=== PATIENT | male | born 1980 | race Caucasian/White ===

== ENCOUNTER 2019-07-09 14:05 | Inpatient (IN) | payer OTHER ==
[~2019-07-09] VITALS: Ht 175.2 cm; Wt 91.6 kg
--- NOTE | 2019-07-09 14:30 | NUR ---
A 38, admitted to , under the services of BRIDGET Garza DO with a diagnosis of POSITIVE COVID-19, SOB. Chief complaint is SOB, COUGH, FEVER. Patient arrived via bed from [place]. Monitor applied. Initial assessment completed. Vital signs taken and recorded. BRIDGET GARZA DO notified of admission to the unit. Orders received. See assessment for past medical history, medications and allergies. Patient and/or family oriented to unit. [facility] visitation policy reviewed. Clothing/patient valuable form completed. MATTHEW BOYD
[2019-07-09 14:40] VITALS: BP 169/91
[2019-07-09 15:26] LABS: ABG BASE EXCESS 4.4 mmol/L (-2.0-2.0); ARTERIAL BLOOD GAS PH 7.475 (7.35-7.45)
[2019-07-09 15:52] LABS: BASO % 0.1 % (0.0-1.0); HEMOGLOBIN 15.2 g/dl (14.0-18.0); LYMPH # 0.5 10*3/uL (1.3-4.4); LYMPH % 5.8 % (27.0-41.0); MEAN CELL VOLUME 92.6 fl (80.0-94.0); MEAN CORPUSCULAR HGB CONC 34.5 g/dl (33.0-37.0); MEAN PLATELET VOLUME 9.9 fl (9.6-12.3); MONO # 0.6 10*3/uL (0.1-1.0); MONO % 6.7 % (3.0-9.0); NEUT # 7.5 10*3/uL (2.3-7.9); NEUT % 86.9 % (47.0-73.0); PLATELET COUNT AUTOMATED 189 10*3/uL (130-400); RED BLOOD COUNT 4.75 10*6/uL (4.50-5.90); WHITE BLOOD COUNT 8.6 10*3/uL (4.8-10.8)
[2019-07-09 16:00] VITALS: BP 169/91
[2019-07-09 16:26] LABS: ALBUMIN 3.5 gm/dl (3.1-4.5); ALKALINE PHOSPHATASE 48 U/L (45-117); BUN 5 mg/dl (7-24); CHLORIDE 104 mmol/L (98-107); CPK 499 U/L (39-308); CREATININE 0.93 mg/dL (0.70-1.30); LDH 271 U/L (87-241); SGOT/AST 20 IU/L (3-35); SGPT/ALT 36 U/L (12-78); SODIUM 137 mmol/L (136-145); TOTAL PROTEIN 7.5 gm/dL (6.4-8.2); TROPONIN I < 0.015 ng/ml (<0.045)
[2019-07-09 18:15] LABS: ABG BASE EXCESS 1.9 mmol/L (-2.0-2.0); ARTERIAL BLOOD GAS PH 7.365 (7.35-7.45)
[2019-07-09 20:00] VITALS: BP 126/76
[2019-07-09 21:41] LABS: ABG BASE EXCESS 1.2 mmol/L (-2.0-2.0); ARTERIAL BLOOD GAS PH 7.332 (7.35-7.45)
--- NOTE | 2019-07-09 22:45 | NUR ---
Upon entrance to patients room, he was restless, resp up to 38, eyes open. Milton given. Diprivan running. Unable to watch patient, due to no camera in the room. Milton effective immediately.
[2019-07-10] VITALS (13 sets, daily range): BP systolic 104–160; BP diastolic 52–90
[2019-07-10 01:25] LABS: ABG BASE EXCESS 3.9 mmol/L (-2.0-2.0); ARTERIAL BLOOD GAS PH 7.428 (7.35-7.45)
[2019-07-10 05:04] LABS: HEP B CORE AB, IGM Negative (Negative); HEPATITIS B SURFACE AG Negative (Negative); HEPATITIS C AB <0.1 (0.0-0.9); HEPATITIS C VIRUS ANTIBODY <0.1 s/co (0.0-0.9)
[2019-07-10 05:29] LABS: ALBUMIN 3.4 gm/dl (3.1-4.5); BUN 8 mg/dl (7-24); CHLORIDE 102 mmol/L (98-107); CHOLESTEROL 101 mg/dL (<200); PHOSPHOROUS 2.7 mg/dL (2.5-4.9); POTASSIUM 3.5 mmol/L (3.5-5.1); SGOT/AST 28 IU/L (3-35); SGPT/ALT 39 U/L (12-78); SODIUM 139 mmol/L (136-145); TOTAL PROTEIN 7.4 gm/dL (6.4-8.2); TRIGLYCERIDES 141 mg/dl (<150); VLDL CHOLESTEROL 28 mg/dL (6-40)
[2019-07-10 05:30] LABS: ALKALINE PHOSPHATASE 51 U/L (45-117); HDL CHOLESTEROL 41 mg/dl (40-60); LDL CHOLESTEROL 32 mg/dL (9-159)
[2019-07-10 06:00] LABS: ABG BASE EXCESS 4.4 mmol/L (-2.0-2.0); ARTERIAL BLOOD GAS PH 7.43 (7.35-7.45)
[2019-07-10 06:02] LABS: HEMATOCRIT 45.1 % (42.0-52.0); HEMOGLOBIN 15.1 g/dl (14.0-18.0); MEAN CELL VOLUME 94.4 fl (80.0-94.0); MEAN CORPUSCULAR HGB 31.6 pg (27.0-31.0); MEAN CORPUSCULAR HGB CONC 33.5 g/dl (33.0-37.0); MEAN PLATELET VOLUME 10.3 fl (9.6-12.3); PLATELET COUNT AUTOMATED 201 10*3/uL (130-400); RED BLOOD COUNT 4.78 10*6/uL (4.50-5.90); RED CELL DISTRI WIDTH 12.4 % (0-14.5); WHITE BLOOD COUNT 9.7 10*3/uL (4.8-10.8)
[2019-07-10 07:15] LABS: TOTAL CELLS COUNTED 100 #CELLS
[2019-07-10 07:16] LABS: PLATELET SUFFICIENCY NORMAL (NORMAL); POLYCHROMASIA SLIGHT
--- NOTE | 2019-07-10 08:00 | NUR ---
SEDATION VACATION, PT AWAKENS FULLY AND IS NOT AGITATED, OPENS EYES, FOLLOW DIRECTIONS, QUILES, NODS HEAD IN RESPONSE TO QUESTIONS REMAINS INTUBATED , ON VENT, TOLERATING SETTINGS WELL, OGT CLAMPED, TINAJERO, RIHerb AND L ART SECURE REPOSITIONED
--- NOTE | 2019-07-10 08:30 | NUR ---
DR PARKS HERE
--- NOTE | 2019-07-10 09:05 | NUR ---
TYLENOL FOR TEMP 103.1
--- NOTE | 2019-07-10 10:14 | NUR ---
Attempted to reach , Lis, with no success and no voicemail set up. Will call again at a later time.
--- NOTE | 2019-07-10 11:00 | NUR ---
TYLENOL EFFECTIVE RECATL TEMP 100.7
--- NOTE | 2019-07-10 11:26 | NUR ---
Attempted to reach , Lis, with no success. No voicemail set up. Will try again later.
[2019-07-10 14:40] LABS: ABG BASE EXCESS 5.2 mmol/L (-2.0-2.0); ARTERIAL BLOOD GAS PH 7.423 (7.35-7.45)
--- NOTE | 2019-07-10 16:30 | NUR ---
NO CHANGE IN ASSESSMENT, REPOSITIONED ALL LINES SECURE
--- NOTE | 2019-07-10 17:58 | NUR ---
CALLED IN FOR UPDATE, ADDED HER CELL NUMBER S HER HOME PHONE HAS BEEN DOWN ALL DAY
--- NOTE | 2019-07-10 20:00 | NUR ---
Patient moved into room with camera. Patient tolerated move well.
[2019-07-11] VITALS (12 sets, daily range): BP systolic 107–153; BP diastolic 56–77
[2019-07-11 05:43] LABS: ABG BASE EXCESS 4.7 mmol/L (-2.0-2.0); ARTERIAL BLOOD GAS PH 7.434 (7.35-7.45)
[2019-07-11 05:51] LABS: ALKALINE PHOSPHATASE 45 U/L (45-117); CHLORIDE 101 mmol/L (98-107); CREATININE 0.88 mg/dL (0.70-1.30); POTASSIUM 3.5 mmol/L (3.5-5.1); SGOT/AST 13 IU/L (3-35); SGPT/ALT 29 U/L (12-78); SODIUM 138 mmol/L (136-145); TOTAL PROTEIN 6.8 gm/dL (6.4-8.2); TRIGLYCERIDES 274 mg/dl (<150)
[2019-07-11 05:54] LABS: BUN 18 mg/dl (7-24)
[2019-07-11 06:32] LABS: HEMATOCRIT 39.9 % (42.0-52.0); HEMOGLOBIN 13.2 g/dl (14.0-18.0); MEAN CELL VOLUME 95.5 fl (80.0-94.0); MEAN CORPUSCULAR HGB 31.6 pg (27.0-31.0); MEAN CORPUSCULAR HGB CONC 33.1 g/dl (33.0-37.0); MEAN PLATELET VOLUME 10.5 fl (9.6-12.3); PLATELET COUNT AUTOMATED 225 10*3/uL (130-400); RED BLOOD COUNT 4.18 10*6/uL (4.50-5.90); WHITE BLOOD COUNT 5.2 10*3/uL (4.8-10.8)
[2019-07-11 07:03] LABS: PLATELET SUFFICIENCY NORMAL (NORMAL); TOTAL CELLS COUNTED 100 #CELLS
[2019-07-11 07:46] LABS: PHOSPHOROUS 2.5 mg/dL (2.5-4.9)
--- NOTE | 2019-07-11 08:00 | NUR ---
PT RESTING COMFORTABLY SEDATED ON DIPRIVAN/FENTANYL. OPENS EYES AND NODS APPROPRIATELY. SUCTIONED FOR SCANT AMOUNT OF CLEAR SECRETIONS. POX 96% VIA 35% FIO2. OGT PATENT AND PLACEMENT VERIFIED VIA AIR BOLUS. NO RESIDUAL. WILL MONITOR.
--- NOTE | 2019-07-11 09:19 | NUR ---
Attempted to reach , Lis, with no success. Phone call went straight to say there has not been a voicemail set up. Will try again later.
--- NOTE | 2019-07-11 09:30 | NUR ---
Attempted to reach patient's mother, Shannan Jeffrey, at [phone]. That number is no longer a working number.
--- NOTE | 2019-07-11 10:22 | NUR ---
Insurance Investigator spoke to , Lis, via phone. Patient states lives at home with his and children. There are 15 steps in the home. Physician: Dr. Rosalia Vinson at [facility] in [place] [facility]: [facility] in [place] Home health services: possibly, unsure at this time Patient's level of ADLs: independent Patient has working utilities: yes DME: none Follow-up physician's appointment after d/c: will be made by the hospitalist nurse director upon discharge Does patient want to access PORTAL?: no Discharge plan discussed with via phone. He lives at home with his and children. He is normally independent in his ADLs and ambulation. Discussed home health care services and she is unsure at this time but she would consider a home health nurse. When medically stable he will be discharged to home. His family will provide transportation on discharge. SUHAIL PERALTA
--- NOTE | 2019-07-11 11:30 | NUR ---
SEDATION TURNED OFF ORDERED TO START WEANING PROCESS. PT REMAINS CALM FOLLOWING COMMANDS. COMPLETE BATH GIVEN, TOLERATED WELL. 1200- PT AWAKE, FOLLOWING COMMANDS. RESP HERE AND PLACED PATIENT ON CPAP /. RESP RATE 11-12. POX 94% VIA 35% FIO2. WILL MONITOR.
--- NOTE | 2019-07-11 14:10 | NUR ---
PT REMAINS OFF SEDATION, AWAKE, ALERT AND CALM. FOLLOWING COMMANDS. TOLERATING CPAP 5/10 WITH AN FIO2 94-96% VIA 35%. SUCTIONED FOR SCANT AMOUNT CLEAR SECRETIONS. TURNED AND REPOSIIONED.
[2019-07-11 14:32] LABS: ABG BASE EXCESS 5.5 mmol/L (-2.0-2.0); ARTERIAL BLOOD GAS PH 7.465 (7.35-7.45)
--- NOTE | 2019-07-11 15:53 | NUR ---
RN IN TO SEE PATIENT, PATIENT AWAKE AND ORIENTED X3 WHEN RN ASKS QUESTIONS. PATIENT WRITES ON CLIPBOARD, SAYS HE ALMOST CHOKED AND WANTED SUCTIONED. RN UNTIED WRISTS AND PATIENT WAS ABLE SUCTION SELF. PATIENT MOVING HANDS ABOUT AND WRITING. EXPLAINED TO PATIENT THAT IT IS VERY LIKELY THAT HE WILL BE EXTUBATED TODAY. PATIENT NODS IN UNDERSTANDING. RN WILL CONTINUE TO MONITOR.
[2019-07-11 16:20] LABS: ARTERIAL BLOOD GAS PH 7.459 (7.35-7.45)
--- NOTE | 2019-07-11 16:55 | NUR ---
Patient extubated on physician's order. Nasal Cannula 4L. Pulse oximeter on with alarms set at 10% below patient's baseline. PULSE OXIMETRY IS 95-98% Pharyngeal reflex present prior to extubation. Patient encouraged to cough and deep breathe. Patient observed for skin color and temperature, monitor rhythm, respiratory rate and effort, and level of consciousness. NPO for 2 hours. AND ABG WILLL BE REDRAWN. START ON LIQUIDS AFTER THESE BLOOD GASES. ADVANCE DIET TOLERATED. Patient tolerated procedure . RAN MCDONOUGH
--- NOTE | 2019-07-11 17:45 | NUR ---
PATIENT TOLERATING NASAL OXYGEN WELL AFTER EXTUBATION, IS AWAKE AND PLAYING ON CELL PHONE. DENIES ANY NEEDS. HAS YANKEUR SUCTION AT BEDSIDE IN CASE OF NEED.
--- NOTE | 2019-07-11 18:18 | NUR ---
spoke with regarding care. updated on condition. answered questions
--- NOTE | 2019-07-11 20:00 | NUR ---
Patient sitting up in bed, answers questions appropriately. Patient tolerating nasal cannula well at 4L. Was bumped down off 5L, and pulse ox never dropped below 92%. Patient coughing up clear sputum, large amounts. Patient states he is not able to take deep breaths, but is breathing easily. Patient asks questions about his vitals signs and also stated that he thought his skin had a tinge of yellow. Patient requested some water, was given and patient tolerated well, did have a little discomfort at first, then got better. Monitoring patient via camera.
[2019-07-11 20:12] LABS: ABG BASE EXCESS 6.8 mmol/L (-2.0-2.0); ARTERIAL BLOOD GAS PH 7.451 (7.35-7.45)
--- NOTE | 2019-07-11 21:07 | NUR ---
PATIENT PLACED ON ROOM AIR AFTER 5 MINUTES SPO2 91-92%, HEART RATE REMAINED IM THE MID TO HIGH 80s. PLACED BACK ON4 L/M O2.
[2019-07-12] VITALS (10 sets, daily range): BP systolic 113–139; BP diastolic 57–71
[2019-07-12 06:01] LABS: ABG BASE EXCESS 7.2 mmol/L (-2.0-2.0); ARTERIAL BLOOD GAS PH 7.437 (7.35-7.45)
[2019-07-12 06:17] LABS: ALKALINE PHOSPHATASE 47 U/L (45-117); BUN 21 mg/dl (7-24); CHLORIDE 103 mmol/L (98-107); CREATININE 0.93 mg/dL (0.70-1.30); PHOSPHOROUS 4.2 mg/dL (2.5-4.9); SGOT/AST 13 IU/L (3-35); SGPT/ALT 28 U/L (12-78); SODIUM 142 mmol/L (136-145); TOTAL PROTEIN 6.6 gm/dL (6.4-8.2)
[2019-07-12 06:34] LABS: BASO % 0.1 % (0.0-1.0); HEMATOCRIT 40.8 % (42.0-52.0); HEMOGLOBIN 13.9 g/dl (14.0-18.0); LYMPH # 0.6 10*3/uL (1.3-4.4); LYMPH % 5.4 % (27.0-41.0); MEAN CELL VOLUME 94.2 fl (80.0-94.0); MEAN CORPUSCULAR HGB 32.1 pg (27.0-31.0); MEAN CORPUSCULAR HGB CONC 34.1 g/dl (33.0-37.0); MEAN PLATELET VOLUME 10.3 fl (9.6-12.3); MONO # 0.8 10*3/uL (0.1-1.0); MONO % 6.9 % (3.0-9.0); NEUT # 10.4 10*3/uL (2.3-7.9); NEUT % 86.8 % (47.0-73.0); PLATELET COUNT AUTOMATED 279 10*3/uL (130-400); RED BLOOD COUNT 4.33 10*6/uL (4.50-5.90); RED CELL DISTRI WIDTH 11.9 % (0-14.5); WHITE BLOOD COUNT 11.9 10*3/uL (4.8-10.8)
--- NOTE | 2019-07-12 12:52 | NUR ---
TINAJERO CATHETER D/C'D AT THIS TIME. PROVIDED WITH URINAL AND INSTRUCTED TO KLET RN KNOW WHEN HE URINATES
--- NOTE | 2019-07-12 12:53 | NUR ---
PATIENT ON 1LITER NASAL CANNULA. O2 SAT-94%
--- NOTE | 2019-07-12 13:02 | NUR ---
Attempted to reach patient via phone with no success. Will try back at a later time.
--- NOTE | 2019-07-12 16:53 | NUR ---
Patient resting quietly with no c/o discomfort. Respirations easy and regular. Vital signs stable. No overt distress. RESTING ON 1LITER NASAL CANNULA RAN MCDONOUGH
[2019-07-13] VITALS (9 sets, daily range): BP systolic 102–129; BP diastolic 54–78
[2019-07-13 00:08] LABS: TB1 Ag VALUE 0.14 IU/mL (.)
[2019-07-13 06:15] LABS: BASO % 0.4 % (0.0-1.0); EOS % 0.4 % (1.0-4.0); HEMATOCRIT 41.2 % (42.0-52.0); LYMPH # 1.2 10*3/uL (1.3-4.4); LYMPH % 21.6 % (27.0-41.0); MEAN CELL VOLUME 95.4 fl (80.0-94.0); MEAN CORPUSCULAR HGB 32.4 pg (27.0-31.0); MEAN PLATELET VOLUME 9.6 fl (9.6-12.3); MONO # 0.7 10*3/uL (0.1-1.0); MONO % 11.7 % (3.0-9.0); NEUT # 3.6 10*3/uL (2.3-7.9); NEUT % 64.3 % (47.0-73.0); PLATELET COUNT AUTOMATED 253 10*3/uL (130-400); RED BLOOD COUNT 4.32 10*6/uL (4.50-5.90); WHITE BLOOD COUNT 5.6 10*3/uL (4.8-10.8)
[2019-07-13 06:34] LABS: BUN 19 mg/dl (7-24); CHLORIDE 104 mmol/L (98-107); POTASSIUM 3.7 mmol/L (3.5-5.1); SODIUM 141 mmol/L (136-145)
[2019-07-13 06:37] LABS: ALKALINE PHOSPHATASE 46 U/L (45-117); CREATININE 0.79 mg/dL (0.70-1.30); SGOT/AST 13 IU/L (3-35); SGPT/ALT 33 U/L (12-78); TOTAL PROTEIN 6.5 gm/dL (6.4-8.2)
--- NOTE | 2019-07-13 07:30 | NUR ---
PT RESTING IN BED. STATES HE IS VERY TIRED AND JUST WANTS TO SLEEP. RESPS EASY AND NON LABORED. NO S/S OF DISTRESS NOTED. VSS. WHITE BOARD UPDATED. CALL LIGHT WITHIN REACH. PT NOTED TO HAVE ART LINE IN PLACE AND IN WORKING CONDITION. WILL ASK TODAY ABOUT REMOVAL WHEN DOCTORS ROUND. REYNOLD AND Cynthia ART LINE ASYMPTOMATIC AT THIS TIME.
--- NOTE | 2019-07-13 11:25 | NUR ---
PER DR KASEY CAMPBELL TO REMOVE OXYGEN AND MONITOR SPO2. ALSO STATED TO REMOVE ART LINE AND IJ LINE.
--- NOTE | 2019-07-13 12:00 | NUR ---
SPOKE WITH DR HYDE REGARDING IV ACCESS. STATES AFTER REMOVING THE ART LINE AND IJ THAT PT DOESNT NEED IV ACCESS RIGHT NOW.
--- NOTE | 2019-07-13 12:48 | NUR ---
ART LINE AND IJ REMOVED WITHOUT INCIDENT. TIPS INSPECTED AND INTACT. MINIMAL BLEEDING NOTED AND PRESSURE DRESSINGS APPLIED. PT TOLERATED WELL. SITTING UP IN BED EATING LUNCH. STATES HE WANTS TO TRY AND GET OUT OF BED WHEN HES FINISHED.
--- NOTE | 2019-07-13 13:18 | NUR ---
SPOKE WITH DR HYDE REGARDING PATIENT WANTING TO SHOWER. STATES IT IS OKAY TO MAKE PT MED SURG NOW.
--- NOTE | 2019-07-13 15:52 | NUR ---
PT REQUESTING TO SHOWER. ASSISTED TO BATHROOM AND NEEDED. GAIT WAS STEADY. SPO2 REMAINED WNL ON 1L NC.
--- NOTE | 2019-07-13 18:26 | NUR ---
ASKED PT IF HE WOULD LIKE TO EAT DINNER UP IN THE CHAIR. STATES HE DOESNT FEEL LIKE IT. RESTING IN BED. RESPS EASY AND NON LABORED. NO S/S OF DISTRESS NOTED. VSS. 1L OXYGEN INTACT. CALL LIGHT WITHIN REACH. REINFORCED THE IMPORTANCE OF EARLY AMBULATION AND MOBILIZATION TO PT. PT STATES HE UNDERSTANDS
[2019-07-14] VITALS: BP 122/70
[2019-07-14 06:53] LABS: BASO % 0.4 % (0.0-1.0); EOS # 0.1 10*3/uL (0.0-0.4); EOS % 1.4 % (1.0-4.0); HEMATOCRIT 41.9 % (42.0-52.0); HEMOGLOBIN 14.1 g/dl (14.0-18.0); LYMPH # 1.3 10*3/uL (1.3-4.4); LYMPH % 26.2 % (27.0-41.0); MEAN CORPUSCULAR HGB CONC 33.7 g/dl (33.0-37.0); MEAN PLATELET VOLUME 9.1 fl (9.6-12.3); MONO # 0.4 10*3/uL (0.1-1.0); MONO % 8.5 % (3.0-9.0); NEUT # 3.1 10*3/uL (2.3-7.9); NEUT % 60.9 % (47.0-73.0); PLATELET COUNT AUTOMATED 259 10*3/uL (130-400); RED BLOOD COUNT 4.41 10*6/uL (4.50-5.90); RED CELL DISTRI WIDTH 11.9 % (0-14.5)
[2019-07-14 07:07] LABS: ALKALINE PHOSPHATASE 42 U/L (45-117); BUN 16 mg/dl (7-24); CHLORIDE 106 mmol/L (98-107); CREATININE 0.73 mg/dL (0.70-1.30); POTASSIUM 3.6 mmol/L (3.5-5.1); SGOT/AST 30 IU/L (3-35); SGPT/ALT 54 U/L (12-78); SODIUM 139 mmol/L (136-145); TOTAL PROTEIN 6.3 gm/dL (6.4-8.2)
--- NOTE | 2019-07-14 07:30 | NUR ---
PT RESTING IN BED. VOICES NO CONCERNS AT THIS TIME. RESPS EASY AND NON LABORED. NO S/S OF DISTRESS NOTED. VSS. 1L OXYGEN INTACT. WHITE BOARD UPDATED. CALL LIGHT WITHIN REACH.
[2019-07-14 08:00] VITALS: BP 119/65
--- NOTE | 2019-07-14 08:58 | NUR ---
PT ASSISTED TO CHAIR TO EAT BREAKFAST. TOLERATED WELL. OXYGEN IS OFF AT THIS TIME. SPO2 WNL. WILL CONTINUE TO MONITOR. RESPS EASY AND NON LABORED. NO S/S OF DISTRESS. CALL LIGHT WITHIN REACH.
--- NOTE | 2019-07-14 10:07 | NUR ---
PT BACK TO BED AT THIS TIME.
--- NOTE | 2019-07-14 10:27 | NUR ---
PT ON ROOM AIR AT THIS TIME. SPO2 93%. RESPIRATORY STATES THEY WILL INSTRUCT PT ON HOW TO USE INCENTIVE SPIROMETER. WILL CONTINUE TO MONITOR
[2019-07-14 12:00] VITALS: BP 126/76
[2019-07-14 16:00] VITALS: BP 128/78
[2019-07-14 20:00] VITALS: BP 132/77
--- NOTE | 2019-07-14 21:34 | NUR ---
IN TO ASSESS PATIENT AT THIS TIME. PATIENT RESTING IN BED, NO COMPLAINTS. STATES THAT HE IS NOT SHORT OF BREATH AT THIS TIME, 93% ON RA. DOES HAVE A PRODUCTIVE COUGH. AFEBRILE 98.1. ENCOURAGED TO USE INCENTIVE SPIROMETER AND DEEP BREATH. NO COMPLAINTS OF PAIN. WILL CONTINUE TO MONITOR.
--- NOTE | 2019-07-14 22:21 | NUR ---
24 HOUR CHART CHECK COMPLETE.
[2019-07-15] VITALS: BP 118/73
[2019-07-15 06:04] LABS: ALKALINE PHOSPHATASE 43 U/L (45-117); BUN 17 mg/dl (7-24); CHLORIDE 107 mmol/L (98-107); CREATININE 0.73 mg/dL (0.70-1.30); POTASSIUM 3.8 mmol/L (3.5-5.1); SGOT/AST 49 IU/L (3-35); SGPT/ALT 100 U/L (12-78); SODIUM 139 mmol/L (136-145); TOTAL PROTEIN 6.1 gm/dL (6.4-8.2)
[2019-07-15 08:00] VITALS: BP 121/74
--- NOTE | 2019-07-15 09:51 | NUR ---
Software Applications Designer spoke to patient via phone. Discussed home health care services and he denies any home needs. Discussed his was thinking about a home health nurse last week and he denies the need currently. He is hoping to be discharged about noon today. Hospitalist nurse director notified. When medically stable he will be discharged to home.
[2019-07-15] MEDS ORDERED: HYDROXYCHLOROQ200 M1 PO (11:26)
[2019-07-15] MEDS ORDERED: RITONAVIR100 MG PO (11:26)
[2019-07-15] MEDS ORDERED: ATAZANAVIR PO (11:26)
--- NOTE | 2019-07-15 12:08 | NUR ---
Discharge instructions reviewed with patient/family. Patient receptive and verbalizes understanding. Follow-up care arranged. Written instructions given to patient/family. CHRISTA YANG
== END 2019-07-15 12:08 | disposition home or self-care (01) | DRG 208 ==
LOC: 5E 14:05
PROVIDERS: Family Medicine; Internal Medicine; Internal Medicine Critical Care Medicine; Student in an Organized Health Care Education/Training Program; ADMIT Internal Medicine
PROC: 4A133B1 Monitoring of Arterial Pressure, Peripheral, Percutaneous Approach (ICD-10-PCS; principal; 2019-07-09)
PROC: 02H633Z Insertion of Infusion Device into Right Atrium, Percutaneous Approach (ICD-10-PCS; principal; 2019-07-09)
PROC: 03HY32Z Insertion of Monitoring Device into Upper Artery, Percutaneous Approach (ICD-10-PCS; principal; 2019-07-09)
PROC: 0BH18EZ Insertion of Endotracheal Airway into Trachea, Via Natural or Artificial Opening Endoscopic (ICD-10-PCS; principal; 2019-07-09)
PROC: 5A1945Z Respiratory Ventilation, 24-96 Consecutive Hours (ICD-10-PCS; principal; 2019-07-09)
PROC: 4A133J1 Monitoring of Arterial Pulse, Peripheral, Percutaneous Approach (ICD-10-PCS; principal; 2019-07-09)
PROC: B548ZZA Ultrasonography of Superior Vena Cava, Guidance (ICD-10-PCS; principal; 2019-07-09)
DX: U07.1 COVID-19 (principal); A41.9 Sepsis, unspecified organism; J96.01 Acute respiratory failure with hypoxia; R65.20 Severe sepsis without septic shock; J12.89 Other viral pneumonia; E87.3 Alkalosis; D68.9 Coagulation defect, unspecified; E87.6 Hypokalemia; K21.9 Gastro-esophageal reflux disease without esophagitis; R73.9 Hyperglycemia, unspecified; E83.41 Hypermagnesemia; E78.1 Pure hyperglyceridemia; Z87.891 Personal history of nicotine dependence

== ENCOUNTER → 2019-07-19 | Outpatient (CLI) | payer OTHER ==
[~2019-07-19] MED LIST: ATAZANAVIR PO; HYDROXYCHLOROQ200 M1 PO; RITONAVIR100 MG PO
== END | disposition home or self-care (01) ==
LOC: COVID19 13:18
DX: U07.1 COVID-19 (principal)

== ENCOUNTER → 2019-07-26 | Outpatient (CLI) | payer OTHER | END | disposition home or self-care (01) | LOC: COVID19 10:31 | DX: U07.1 COVID-19 (principal) ==